=== PATIENT | male | born 1980 | race Caucasian/White ===

== ENCOUNTER → 2022-04-01 | Outpatient (CLI) | payer OTHER | LOC: WCC 07:36 | DX: L89.314 Pressure ulcer of right buttock, stage 4 (principal); F79 Unspecified intellectual disabilities; R56.9 Unspecified convulsions; G82.20 Paraplegia, unspecified; Q05.9 Spina bifida, unspecified; Z79.01 Long term (current) use of anticoagulants; Z96.0 Presence of urogenital implants; Z91.040 Latex allergy status ==

== ENCOUNTER → 2022-04-15 | Outpatient (CLI) | payer OTHER | END | disposition home or self-care (01) | LOC: WCC 07:07 | DX: L89.314 Pressure ulcer of right buttock, stage 4 (principal); R56.9 Unspecified convulsions; G82.20 Paraplegia, unspecified; Q05.9 Spina bifida, unspecified; F79 Unspecified intellectual disabilities; Z79.01 Long term (current) use of anticoagulants; Z79.899 Other long term (current) drug therapy ==

== ENCOUNTER → 2022-04-30 | Outpatient (CLI) | payer OTHER | LOC: WCC 07:29 | DX: L89.314 Pressure ulcer of right buttock, stage 4 (principal); F79 Unspecified intellectual disabilities; R56.9 Unspecified convulsions; G82.20 Paraplegia, unspecified; Q05.9 Spina bifida, unspecified; Z79.01 Long term (current) use of anticoagulants; Z96.0 Presence of urogenital implants; Z91.040 Latex allergy status ==

== ENCOUNTER → 2022-05-14 | Outpatient (CLI) | payer OTHER | LOC: WCC 07:38 | DX: L89.314 Pressure ulcer of right buttock, stage 4 (principal); F79 Unspecified intellectual disabilities; R56.9 Unspecified convulsions; G82.20 Paraplegia, unspecified; Q05.9 Spina bifida, unspecified; Z96.0 Presence of urogenital implants; Z91.040 Latex allergy status; Z79.01 Long term (current) use of anticoagulants ==

== ENCOUNTER → 2022-05-27 | Outpatient (CLI) | payer OTHER | LOC: WCC 07:32 | DX: L89.314 Pressure ulcer of right buttock, stage 4 (principal); R56.9 Unspecified convulsions; G82.20 Paraplegia, unspecified; Q05.9 Spina bifida, unspecified; F79 Unspecified intellectual disabilities; Z96.0 Presence of urogenital implants; Z79.01 Long term (current) use of anticoagulants ==

== ENCOUNTER → 2022-06-10 | Outpatient (CLI) | payer OTHER | LOC: WCC 07:45 | DX: L89.314 Pressure ulcer of right buttock, stage 4 (principal); F79 Unspecified intellectual disabilities; R56.9 Unspecified convulsions; G82.20 Paraplegia, unspecified; Q05.9 Spina bifida, unspecified; Z79.01 Long term (current) use of anticoagulants; Z96.0 Presence of urogenital implants; Z91.040 Latex allergy status ==